=== PATIENT | male | born 1995 | race Caucasian/White ===

== ENCOUNTER 2019-05-27 18:43 | Emergency (ER) | payer OTHER ==
[~2019-05-27] VITALS: Ht 188 cm; Wt 137.8 kg
--- NOTE | 2019-05-27 19:28 | NUR ---
Pt presents to room reporting dizziness while driving today. Pt states he pulled over and got out of the car before having a syncopal episode. Pt states his SO told him he fell in the episode, pt has abrasion to his left knee in room. Pt denies any dizziness, chest pain, or SOB during assessment.
[2019-05-27 19:36] LABS: LYMPHOCYTES % (AUTO) 19 % (22-44); MEAN CORPUSCULAR VOLUME 91.4 fL (81-97); MEAN PLATELET VOLUME 9.5 fL (7.4-10.4); MONOCYTES % (AUTO) 10 % (2-9); NEUTROPHILS % (AUTO) 70 % (42-75); PLATELET COUNT 219 x10^3/uL (130-400); RED BLOOD COUNT 5.15 x10^6/uL (4.38-5.82); RED CELL DISTRIBUTION WIDTH 13.4 % (9.4-14.8)
[2019-05-27 19:37] LABS: BASOPHILS # (AUTO) 0.05 x10^3/uL (0-0.1); BASOPHILS % (AUTO) 1 % (0-1); EOSINOPHILS # (AUTO) 0.14 x10^3/uL (0-0.4); EOSINOPHILS % (AUTO) 1 % (1-7); LYMPHOCYTES # (AUTO) 1.74 x10^3/uL (1-3.4); MD NO; MONOCYTES # (AUTO) 0.92 x10^3/uL (0.2-0.8); NEUTROPHILS # (AUTO) 6.59 x10^3/uL (1.8-6.8)
[2019-05-27 19:43] LABS: ALANINE AMINOTRANSFERASE 19 U/L (12-78); ALBUMIN 4.2 g/dL (3.4-5.0); ANION GAP 5 mmol/L (5-15); CALCIUM 9.1 mg/dL (8.5-10.1); CHLORIDE 103 mmol/L (98-107)
[2019-05-27 19:48] LABS: ALKALINE PHOSPHATASE 92 U/L (45-117); BILIRUBIN,TOTAL 0.2 mg/dL (0.2-1.0); CREATININE 1.31 mg/dL (0.7-1.3); TROPONIN I < 0.015 ng/mL (0.000-0.045)
[2019-05-27 21:34] VITALS: BP 127/66
== END 2019-05-27 21:36 | disposition home or self-care (01) ==
LOC: ED 20:19
DX: R42 Dizziness and giddiness (principal); R55 Syncope and collapse; M79.89 Other specified soft tissue disorders
CPT/HCPCS: 36415; 70450; 71045; 80053; 84484; 85025; 85379; 93005; 99285